=== PATIENT | female | born 1990 | race Two or more races ===

== ENCOUNTER → 2020-06-27 06:28 | Outpatient (CLI) | payer OTHER | END | disposition home or self-care (01) | LOC: LAB 06:28 | PROVIDERS: ATTEND Internal Medicine Gastroenterology | DX: R10.13 Epigastric pain (principal); D64.89 Other specified anemias; N39.0 Urinary tract infection, site not specified; Z00.00 Encounter for general adult medical examination without abnormal findings; Z11.4 Encounter for screening for human immunodeficiency virus [HIV]; A63.8 Other specified predominantly sexually transmitted diseases; Z11.3 Encounter for screening for infections with a predominantly sexual mode of transmission ==

== ENCOUNTER 2020-07-12 06:26 | Outpatient (CLI) | payer OTHER | END 2020-07-12 06:36 | disposition home or self-care (01) | LOC: LAB 06:26 | DX: D64.89 Other specified anemias (principal); I10 Essential (primary) hypertension; E11.9 Type 2 diabetes mellitus without complications; E03.8 Other specified hypothyroidism; E78.49 Other hyperlipidemia; N39.0 Urinary tract infection, site not specified; Z32.01 Encounter for pregnancy test, result positive; F19.10 Other psychoactive substance abuse, uncomplicated ==

== ENCOUNTER 2020-10-31 19:34 | Emergency (ER) | payer OTHER ==
[~2020-10-31] VITALS: Ht 157.5 cm; Wt 52.2 kg
[2020-10-31] MEDS ORDERED: ZOLOFT100 MG PO (19:56)
== END 2020-10-31 21:34 | disposition home or self-care (01) ==
LOC: ER 19:34
DX: L13.8 Other specified bullous disorders (principal)

== ENCOUNTER 2021-01-06 08:13 | Outpatient (CLI) | payer OTHER ==
[~2021-01-06 08:13] MED LIST: ZOLOFT100 MG PO
== END 2021-01-06 09:54 | disposition home or self-care (01) ==
LOC: RAD 08:13
PROVIDERS: ATTEND Physical Medicine & Rehabilitation
DX: M54.5 Low back pain (principal); M25.572 Pain in left ankle and joints of left foot

== ENCOUNTER 2021-05-19 10:13 | Emergency (ER) | payer OTHER ==
[~2021-05-19] VITALS: Ht 157.5 cm; Wt 52.2 kg
== END 2021-05-19 13:59 | disposition home or self-care (01) ==
LOC: ER 10:13
DX: S81.012A Laceration without foreign body, left knee, initial encounter (principal); M12.562 Traumatic arthropathy, left knee; W18.09XA Striking against other object with subsequent fall, initial encounter; Y93.41 Activity, dancing; Y92.89 Other specified places as the place of occurrence of the external cause; Y99.8 Other external cause status

== ENCOUNTER 2021-10-11 23:32 | Emergency (ER) | payer OTHER ==
[~2021-10-11] VITALS: Ht 157.5 cm; Wt 52.2 kg
[2021-10-12] MEDS ORDERED: GENTAK5 ML OP (02:39)
[2021-10-12] MEDS ORDERED: REDNESS RELIEF15 M2 OP (02:39)
== END 2021-10-12 02:42 ==
LOC: ER 23:32
DX: H57.11 Ocular pain, right eye (principal); Z91.040 Latex allergy status; Z88.2 Allergy status to sulfonamides; Z91.048 Other nonmedicinal substance allergy status

== ENCOUNTER → 2022-05-18 07:20 | Outpatient (CLI) | payer OTHER ==
[~2022-05-18 07:20] MED LIST changes: +GENTAK5 ML OP; +REDNESS RELIEF15 M2 OP
== END | disposition home or self-care (01) ==
LOC: LAB 07:20
PROVIDERS: ATTEND Internal Medicine
DX: Z11.3 Encounter for screening for infections with a predominantly sexual mode of transmission (principal); M81.0 Age-related osteoporosis without current pathological fracture; E85.9 Amyloidosis, unspecified; E63.9 Nutritional deficiency, unspecified; E07.9 Disorder of thyroid, unspecified; E55.9 Vitamin D deficiency, unspecified; E11.9 Type 2 diabetes mellitus without complications; R80.9 Proteinuria, unspecified; Z12.11 Encounter for screening for malignant neoplasm of colon; R97.8 Other abnormal tumor markers

== ENCOUNTER 2022-10-03 16:06 | Outpatient (CLI) | payer OTHER | END 2022-10-03 16:08 | disposition home or self-care (01) | LOC: LAB 16:06 | PROVIDERS: ATTEND Internal Medicine | DX: M81.0 Age-related osteoporosis without current pathological fracture (principal); E85.9 Amyloidosis, unspecified; E63.9 Nutritional deficiency, unspecified; E07.9 Disorder of thyroid, unspecified; E03.9 Hypothyroidism, unspecified; E55.9 Vitamin D deficiency, unspecified; E11.9 Type 2 diabetes mellitus without complications; R80.9 Proteinuria, unspecified; Z12.11 Encounter for screening for malignant neoplasm of colon; R97.8 Other abnormal tumor markers ==

== ENCOUNTER → 2022-10-11 08:10 | Outpatient (CLI) | payer OTHER | END | disposition home or self-care (01) | LOC: LAB 08:10 | PROVIDERS: ATTEND Obstetrics & Gynecology | DX: N93.9 Abnormal uterine and vaginal bleeding, unspecified (principal) ==

== ENCOUNTER 2022-10-18 21:50 | Emergency (ER) | payer OTHER ==
[~2022-10-18] VITALS: Ht 157.5 cm; Wt 56.7 kg
== END 2022-10-18 22:53 | disposition home or self-care (01) ==
LOC: ER 21:50
DX: S93.692A Other sprain of left foot, initial encounter (principal); X58.XXXA Exposure to other specified factors, initial encounter; Y93.41 Activity, dancing; Y92.9 Unspecified place or not applicable; Y99.9 Unspecified external cause status; Z91.040 Latex allergy status; Z88.2 Allergy status to sulfonamides; Z91.018 Allergy to other foods

== ENCOUNTER 2022-11-18 10:32 | Outpatient (CLI) | payer OTHER | END 2022-11-18 10:37 | disposition home or self-care (01) | LOC: LAB 10:32 | PROVIDERS: ATTEND Independent Medical Examiner | DX: B27.00 Gammaherpesviral mononucleosis without complication (principal) ==

== ENCOUNTER 2024-09-28 14:41 | Emergency (ER) | payer OTHER ==
[~2024-09-28] VITALS: Ht 157.5 cm; Wt 54.4 kg
[2024-09-28] MEDS ORDERED: ATORVASTATIN CA20 MG PO (15:20)
[2024-09-28] MEDS ORDERED: ORPHENADRINE CITRATE 30 MG/ML AMPUL IM ONE (17:00)
[2024-09-28] MEDS ORDERED: METHYLPREDNISOLONE SOD SUCC 125 MG VIAL IV ONE (17:00)
[2024-09-28] MEDS ORDERED: ORPHENADRINE CITRATE 30 MG/ML AMPUL ONE (17:13)
[2024-09-28] MEDS ORDERED: METHYLPREDNISOLONE SOD SUCC 125 MG VIAL ONE (17:13)
[2024-09-28] MEDS ORDERED: PROTONIX40 MG PO (17:30)
[2024-09-28] MEDS ORDERED: MEDROLPACK PO (17:30)
[2024-09-28] MEDS ORDERED: KETO10TA2 PO (17:39)
[2024-09-28] MEDS ORDERED: KETOROLAC TROMETHAMINE 10 MG TABLET PO ONE ×2 (17:39→17:45)
[2024-09-28] MEDS ORDERED: KETOROLAC TROMETHAMINE 60 MG VIAL IM ONE (17:45)
== END 2024-09-28 17:44 | disposition home or self-care (01) ==
LOC: ER 14:44
DX: M25.562 Pain in left knee (principal); J45.909 Unspecified asthma, uncomplicated; K21.9 Gastro-esophageal reflux disease without esophagitis; Z88.2 Allergy status to sulfonamides; Z91.040 Latex allergy status; Z91.013 Allergy to seafood; Z91.018 Allergy to other foods